=== PATIENT | male | born 1990 | race African-American/Black ===

== ENCOUNTER 2024-11-11 21:53 | Emergency (ER) | payer SELFPAY ==
[~2024-11-11] VITALS: Ht 185.4 cm; Wt 75.0 kg
[2024-11-11 21:53] VITALS: O2SAT 97
[2024-11-11] MEDS: CEFAZOLIN 1000MG PREMIX 50 ML IV ONE (22:48)
[2024-11-11] MEDS: HYDROCODONE/ACETAMINOPHEN 7.5/325MG TABLET PO ONE (22:48)
[2024-11-11] MEDS: TETANUS, DIPHTHERIA, PERTUSSIS VAC/PF 0.5ML (>10YR OLD) IM ONE (22:49)
[2024-11-11 22:51] LABS: CHLORIDE 107 mEq/L (98-107); HEMOGLOBIN 13.8 g/dL (14.0-18.0); MEAN CORPUSCULAR HEMOGLOBIN 28.1 pg (28.0-32.0); MEAN CORPUSCULAR HGB CONC 32.8 g/dL (31.0-37.0); MEAN CORPUSCULAR VOLUME 85.6 fL (80.0-94.0); PLATELET 211 x1000/uL (130-400); POTASSIUM 3.3 mEq/L (3.5-5.1); RED CELL DISTRIBUTION WIDTH 14.3 % (11.6-14.6); SODIUM 145 mEq/L (136-145); WHITE BLOOD COUNT 8.4 x1000/uL (4.5-11.0)
[2024-11-11 22:52] LABS: CALCIUM 9.9 mg/dL (8.7-10.4); CARBON DIOXIDE 24 mEq/L (21-32)
[2024-11-11 22:57] LABS: CREATININE 1.3 mg/dL (0.6-1.3); GLUCOSE 114 mg/dL (70-105); UREA NITROGEN BLOOD 12 mg/dL (9-23)
[2024-11-12] MEDS ORDERED: CEPH500T MT (00:14)
[2024-11-12 00:48] VITALS: BP 135/73; PULSE 90; RESP 21; TEMP 36.66960; O2SAT 99
[2024-11-12] MEDS ORDERED: T3 PO (12:20)
[2024-11-12] MEDS ORDERED: IBUP-2028 PO (12:20)
[2024-11-12] MEDS ORDERED: CEPH500C2 MT (13:07)
== END 2024-11-12 00:49 | disposition home or self-care (01) ==
LOC: ER 21:53
DX: S92.331A Displaced fracture of third metatarsal bone, right foot, initial encounter for closed fracture (principal); S92.341A Displaced fracture of fourth metatarsal bone, right foot, initial encounter for closed fracture; Z88.0 Allergy status to penicillin; W34.00XA Accidental discharge from unspecified firearms or gun, initial encounter; Y93.89 Activity, other specified; Y92.89 Other specified places as the place of occurrence of the external cause; Y99.8 Other external cause status
CPT/HCPCS: 80048; 85027; 86850; 86900; 86901; 36415; 73620; 90715; 29515; 90471; 96365; 99291; J0690; Z7610 ×5